=== PATIENT | female | born 1960 | race Two or more races ===

== ENCOUNTER 2024-12-07 07:00 | Inpatient (IN) | payer OTHER ==
[~2024-12-07] VITALS: Ht 170.2 cm; Wt 79.4 kg
[2024-12-07] MEDS ORDERED: GLUMETZA500 MG PO (09:11)
[2024-12-07] MEDS ORDERED: LEXAPRO20 MG PO (09:11)
[2024-12-07] MEDS ORDERED: SYNTHROID112 MCG PO (09:11)
[2024-12-07] MEDS ORDERED: TRAZODONE HCL100 MG PO (09:12)
[2024-12-07] MEDS ORDERED: RESTORIL30 MG PO (09:12)
[2024-12-07] MEDS ORDERED: ATORVASTATIN CA10 MG PO (09:12)
[2024-12-07] MEDS ORDERED: MULTIPLE VITAM1 EAC2 PO (09:38)
[2024-12-07 09:56] LABS: HEMATOCRIT 37.1 % (36.0-45.00); MEAN CORPUSCULAR HEMOGLOBIN 25.8 pg (27.00-32.0); MEAN CORPUSCULAR HGB CONC 32.3 g/dl (32.0-36.0); PLATELET COUNT 297 K/uL (150-450); RED BLOOD COUNT 4.64 M/uL (4.00-6.00); RED CELL DISTRIBUTION WIDTH 17.1 % (11.5-14.5)
[2024-12-07 09:59] LABS: URINE APPEARANCE Clear; URINE BILIRRUBIN Negative (NEGATIVE); URINE BLOOD Negative; URINE COLOR Dark Yellow; URINE GLUCOSE Negative (NEGATIVE); URINE KETONE Trace (NEGATIVE); URINE LEUKOCYTE Negative; URINE NITRATE Negative; URINE PROTEIN Trace (NEGATIVE); URINE UROBILINOGEN 0.2 E.U./dl
[2024-12-07 10:03] LABS: URINE RBC 40.2 uL (0.0-20.8); URINE WBC 11.2 uL (0.0-23.2)
[2024-12-07 10:15] LABS: PARTIAL THROMBOPLASTIN TIME 28.2 SECONDS (22.0-34.0); PROTHROMBIN TIME 10.9 SECONDS (9.0-11.5)
[2024-12-07 10:19] LABS: ALBUMIN 3.9 gm/dL (3.4-5.0); BILIRUBIN TOTAL 0.49 mg/dL (0.3-1.2); CALCIUM 9.4 mg/dL (8.5-10.1); CHOL HDL RATIO 2.1 (0-5.0); CREATININE SERUM 0.84 mg/dL (0.55-1.02); GFR 67.83; GLOBULINA 3.7 G/DL (2.4-3.5); POTASSIUM 3.99 mEq/L (3.5-5.1); TOTAL PROTEIN 7.6 gm/dL (6.4-8.2)
[2024-12-07 11:06] LABS: URINE CAST 0.14 uL (0.0-1.40)
[2024-12-07 11:31] LABS: RH POSITIVE
[2024-12-14] MEDS ORDERED: LIDOCAINE HCL 1%/EPINEPHRINE 20ML VIAL IJ ONE (09:31)
[2024-12-14] MEDS ORDERED: POVIDONE-IODINE 118 ML BOTT TOP ONE (09:31)
[2024-12-14] MEDS ORDERED: CEFAZOLIN SODIUM 1,000 MG VIAL ONE ×2 (09:31→16:05)
[2024-12-14] MEDS ORDERED: BUPIVACAINE HCL/MPF 0.5% 30ML VIAL ONE (09:31)
[2024-12-14] MEDS ORDERED: KETOROLAC TROMETHAMINE 60 MG VIAL IM ONE (09:31)
[2024-12-14] MEDS ORDERED: TRANEXAMIC ACID 100MG/1ML (1000MG) AMPUL IV ONE (09:31)
[2024-12-14] MEDS ORDERED: VANCOMYCIN HCL 1,000 MG VIAL ONE (09:32)
[2024-12-14] MEDS ORDERED: OxyCODONE HCL 5 MG TABLET (ROXICODONE) PO PRN (11:15)
[2024-12-14] MEDS ORDERED: ONDANSETRON HCL 2 MG/ML VIAL IV PRN (11:15)
[2024-12-14] MEDS ORDERED: SODIUM CHLORIDE 0.45 % 1,000 ML IV SCH (11:15)
[2024-12-14] MEDS ORDERED: MORPHINE SULFATE 4 MG/ML VIAL IV ONE (11:15)
[2024-12-14] MEDS ORDERED: MORPHINE SULFATE 4 MG/ML CARTRIDGE IV PRN (11:15)
[2024-12-14] MEDS ORDERED: ACETAMINOPHEN 500 MG GEL..CAP PO SCH (12:00)
[2024-12-14] MEDS ORDERED: INSULIN LISPRO 1,000 UNIT/10 ML UNITS SUBCUTANEO PRN (14:15)
[2024-12-14] MEDS ORDERED: DEXTROSE 50 % IN WATER 0.5 G/ML DISP.SYRIN IV PRN (14:15)
[2024-12-14 16:00] VITALS: BP 162/69; O2SAT 100
[2024-12-14] MEDS ORDERED: GABAPENTIN 300 MG CAPSULE PO ONE (16:05)
[2024-12-14] MEDS ORDERED: GABAPENTIN 300 MG CAPSULE PO SCH (17:00)
[2024-12-14] MEDS ORDERED: CEFAZOLIN SODIUM 1,000 MG VIAL IV SCH (17:00)
[2024-12-14] MEDS ORDERED: ATORVASTATIN CALCIUM 10 MG TABLET PO SCH (17:00)
[2024-12-14] MEDS ORDERED: TEMAZEPAM 15 MG CAPSULE PO SCH (21:00)
[2024-12-14] MEDS ORDERED: FAMOTIDINE/PF 20 MG in 0.9 % SODIUM CHLORIDE 8 ML IV PUSH SCH (21:00)
[2024-12-15] MEDS ORDERED: LEVOTHYROXINE SODIUM 112 MCG TABLET PO SCH (06:00)
[2024-12-15 07:11] LABS: HEMATOCRIT 31.2 % (36.0-45.00); MEAN CELL VOLUME 80.9 fL (80.00-100.00); MEAN CORPUSCULAR HGB CONC 32.2 g/dl (32.0-36.0); PLATELET COUNT 246 K/uL (150-450); RED BLOOD COUNT 3.85 M/uL (4.00-6.00); RED CELL DISTRIBUTION WIDTH 16.6 % (11.5-14.5)
[2024-12-15] MEDS ORDERED: FAMOTIDINE/PF 20 MG/2 ML VIAL ONE (07:21)
[2024-12-15 08:21] LABS: MEAN CORPUSCULAR HEMOGLOBIN 25.9 pg (27.00-32.0)
[2024-12-15 08:24] VITALS: BP 135/65; O2SAT 96
[2024-12-15] MEDS ORDERED: PERCOCET 5-3251 EACH PO (08:34)
[2024-12-15] MEDS ORDERED: DUI500 PO (08:34)
[2024-12-15] MEDS ORDERED: ELIQUIS2.5 MG PO (08:34)
[2024-12-15] MEDS ORDERED: SENNOSIDES 1 TAB TABLET PO SCH (09:00)
[2024-12-15] MEDS ORDERED: APIXABAN 2.5 MG TABLET PO SCH (09:00)
[2024-12-15] MEDS ORDERED: PATIENTS OWN MEDICATION (MEDICAMENTO EN PISO) PO SCH (09:00)
[2024-12-15] MEDS ORDERED: Cyanocobalamin/Mecobalamin 1 TAB.SL SL NR (13:30)
[2024-12-15 16:00] VITALS: BP 134/68; O2SAT 93
[2024-12-15] MEDS ORDERED: VITAMIN B COMPLEX 1 EACH PO SCH (17:00)
[2024-12-15] MEDS ORDERED: SOD FERRIC GLUC COMPLX/SUCROSE 62.5 MG/5 ML AMPUL IV SCH (17:00)
[2024-12-16] VITALS: BP 135/70; O2SAT 95
[2024-12-16 07:15] LABS: HEMATOCRIT 29.8 % (36.0-45.00); MEAN CELL VOLUME 79.5 fL (80.00-100.00); MEAN CORPUSCULAR HEMOGLOBIN 26.6 pg (27.00-32.0); MEAN CORPUSCULAR HGB CONC 33.5 g/dl (32.0-36.0); PLATELET COUNT 226 K/uL (150-450); RED BLOOD COUNT 3.75 M/uL (4.00-6.00); RED CELL DISTRIBUTION WIDTH 16.7 % (11.5-14.5)
[2024-12-16 08:00] VITALS: BP 133/73; O2SAT 95
[2024-12-16] MEDS ORDERED: Cyanocobalamin/Mecobalamin 1 TAB.SL SL SCH (09:00)
[2024-12-16] MEDS ORDERED: IRON FUM,PS/FOLIC ACID/VITC/B3 1 CAP CAPSULE PO SCH (09:00)
[2024-12-16 16:24] VITALS: BP 113/52; O2SAT 97
[2024-12-16] MEDS ORDERED: FAMOtidine 20 MG TABLET PO SCH (21:00)
== END 2024-12-16 17:52 | DRG 470 ==
LOC: O/R 12-14 06:45 → SURH 12-14 07:00 → SURG 12-14 12:52
PROVIDERS: ADMIT Orthopaedic Surgery; ATTEND Orthopaedic Surgery
PROC: 0SUD07Z Supplement Left Knee Joint with Autologous Tissue Substitute, Open Approach (ICD-10-PCS; 2024-12-14)
PROC: 0SRD0J9 Replacement of Left Knee Joint with Synthetic Substitute, Cemented, Open Approach (ICD-10-PCS; principal; 2024-12-14 07:00)
DX: M17.12 Unilateral primary osteoarthritis, left knee (principal); D62 Acute posthemorrhagic anemia; M22.12 Recurrent subluxation of patella, left knee; E03.9 Hypothyroidism, unspecified